=== PATIENT | female | born 1930 | race Caucasian/White ===

== ENCOUNTER → 2017-11-20 | Outpatient (CLI) | payer OTHER ==
--- NOTE | 2017-11-20 15:56 | PCVCIMAG ---
EXAM: BILATERAL CAROTID DUPLEX INDICATION: Carotid Occlusive Disease. FINDINGS: Doppler Measurements (centimeters per second): RIGHT: Peak CCA-78, Peak ECA-113, Diastolic ICA-17, Peak ICA-80, ICA/CCA Ratio-1.0. LEFT: Peak CCA-87, Peak ECA-110, Diastolic ICA-17, Peak ICA-92, ICA/CCA Ratio-1.1. RIGHT CAROTID: The carotid bulb has mild plaque. The proximal internal carotid artery shows <40% stenosis. The common carotid artery shows no significant stenosis. The external carotid artery shows no significant stenosis. LEFT CAROTID: The carotid bulb has moderate plaque. The proximal internal carotid artery shows <40% stenosis. The common carotid artery shows no significant stenosis. The external carotid artery shows no significant stenosis. Antegrade flow in both vertebral arteries. IMPRESSION: <40% stenosis of the right internal carotid artery with mild plaque. <40% stenosis of the left internal carotid artery with moderate plaque. LOC:[place] [id number]
--- NOTE | 2017-11-20 16:44 | PCVCIMAG ---
APPROVED REPORT Study performed: 11/20/2017 14:19:49 EXAM: Comprehensive 2D, Doppler, and color-flow Echocardiogram Patient Location: Echo lab Status: routine BSA: 1.86 HR: 67 bpmBP: 166/92 mmHg Rhythm: NSR Other Information Study Quality: Adequate Risk Factors: Cardiac Risk Factors: HTN Indications Syncope 2D Dimensions LVEF(%): 40.93 (>50%) IVSd: 13.48 (7-11mm) LVDd: 28.82 mm PWd: 12.12 (7-11mm)Ascending Ao: 34.67 (22-36mm) LVDs: 23.31 (25-40mm) Left Atrium: 31.20 (27-40mm) Aortic Root: 29.78 mm LV Single Plane 4CH: 60.68 % LV Single Plane 2CH: 50.58 %Pena's LVEF: 55.63 % Biplane EF: 55.5 % Volumes Left Atrial Volume (Systole) Single Plane 4CH: 62.07 mLSingle Plane 2CH: 74.44 mL LA ESV Index: 37.00 mL/m2 Aortic Valve AoV Peak Lorenzo.: 1.73 m/s AO Peak Gr.: 12.04 mmHgLVOT Max P.83 mmHg LVOT Max V: 1.10 m/s Mitral Valve E/A Ratio: 0.5 MV Decel. Time: 263.31 ms MV E Max Lorenzo.: 0.65 m/s MV A Lorenzo.: 1.24 m/s IVRT: 107.27 ms Pulmonary Valve PV Peak Lorenzo.: 1.31 m/sPV Peak Gr.: 6.91 mmHg Pulmonary Vein P Vein S: 0.28 m/sP Vein A: 0.41 m/s P Vein D: 0.35 m/sP Vein A Dur.: 152.2 msec P Vein S/D Ratio: 0.80 Tricuspid Valve TR Peak Lorenzo.: 3.16 m/s TR Peak Gr.: 39.89 mmHg Left Ventricle The left ventricle is normal size. There is normal LV segmental wall motion. Mild concentric left ventricular hypertrophy. Left ventricular systolic function is normal. The left ventricular ejection fraction is within the normal range. LVEF is 60%. Grade I - abnormal relaxation pattern. Right Ventricle The right ventricle is normal size. The right ventricular systolic function is normal. Atria Left atrium is mildly dilated. Right atrium is mildly dilated. Aortic Valve The aortic valve is normal in structure. No aortic regurgitation is present. There is no aortic valvular stenosis. Mitral Valve The mitral valve is normal in structure. There is no mitral valve regurgitation noted. No evidence of mitral valve stenosis. Tricuspid Valve The tricuspid valve is normal in structure. Mild to moderate tricuspid regurgitation with PAP of 47 mmHg. Pulmonic Valve The pulmonary valve is normal in structure. Mild pulmonic regurgitation. Great Vessels The aortic root is normal in size. IVC is normal in size and collapses with >50% inspiration Pericardium There is no pericardial effusion. There is no pleural effusion. <Conclusion> The left ventricle is normal size. Mild concentric left ventricular hypertrophy. LVEF is 60%. Grade I - abnormal relaxation pattern. The right ventricle is normal size. Left atrium is mildly dilated. Right atrium is mildly dilated. There is no aortic valvular stenosis. There is no mitral valve regurgitation noted. Mild to moderate tricuspid regurgitation with PAP of 47 mmHg. The aortic root is normal in size. There is no pericardial effusion.
== END | disposition home or self-care (01) ==
LOC: PCVCIMAG 14:55
PROVIDERS: ATTEND Internal Medicine Cardiovascular Disease
DX: I65.23 Occlusion and stenosis of bilateral carotid arteries (principal); I07.1 Rheumatic tricuspid insufficiency; R55 Syncope and collapse
CPT/HCPCS: 93306; 93880